=== PATIENT | male | born 1990 | race Caucasian/White ===

== ENCOUNTER 2017-04-03 17:09 | Emergency (ER) | payer MEDICAID ==
[2017-04-03] MEDS ORDERED: XANAX XR1 M1 PO (19:55)
[2017-04-03] MEDS ORDERED: PERCOCET 5-3251 EACH PO ×2 (19:55→21:04)
[2017-04-03] MEDS ORDERED: XANAX0.5 M1 PO (19:56)
[2017-04-03] MEDS ORDERED: PAXIL CR25 M1 PO (19:57)
[2017-04-03] MEDS ORDERED: ATIVAN1 M2 PO (21:04)
[2017-04-03] MEDS ORDERED: PAXIL20 M1 PO (21:12)
== END 2017-04-03 22:00 ==
LOC: EDMED 17:09
DX: Z76.0 Encounter for issue of repeat prescription (principal); F41.9 Anxiety disorder, unspecified; F43.10 Post-traumatic stress disorder, unspecified; Z79.899 Other long term (current) drug therapy